=== PATIENT | female | born 1960 | race Caucasian/White ===

== ENCOUNTER 2016-04-24 14:16 | Emergency (ER) | payer MEDICAID, MEDICARE ==
[2016-04-24 14:47] VITALS: BP 145/68
--- NOTE | 2016-04-24 15:38 | UC ---
Dizzy HPI HPI Summary: vertigo started in the middle of the night last night. Got better, then returned today. Room spins when she suddenly turns head or sits up quickly. Similar to past episodes. She thinks she may have a sinus infection, pain under left eye, bloody/purulent nasal drainage in AM. No fever. Nausea but no vomiting. No recent injury - History Of Current Complaint Chief Complaint: UCDizziness Stated Complaint: DIZZINESS,ELEVATED B/P Time Seen by Provider: 04/24/16 14:34 Hx Obtained From: Patient, Family/French Translator - Onset/Duration: Sudden Onset - last night Timing: Constant Severity Initially: Moderate Severity Currently: Moderate Character: Room Spinning Aggravating Factor(s): Position Change, Supine To Erect, Change In Head Position Alleviating Factor(s): Rest Associated Signs And Symptoms: Positive: Nausea, Unsteady Gait. Negative: Vomiting, Diaphoresis, Tinnitus, Chest Pain, SOB, Palpitations, Visual Changes, Decreased Oral Intake, Change In Medication, Change In Diet Related History: Similar Episode/Dx as - vertigo - Risk Factors Cardiac Risk Factors: Hypertension, Smoking CVA Risk Factor: Hypertension, Smoking - Allergies/Home Medications Allergies/Adverse Reactions: Allergies Allergy/AdvReac Type Severity Reaction Status Date / Time pain meds Allergy Severe Fatigue, Uncoded 04/24/16 14:35 "I DON'T TOLERATE THEM" Home Medications: Home Medications Atorvastatin* [Lipitor*] 20 mg PO QPM 04/24/16 [History Confirmed 04/24/16] PMH/Surg Hx/FS Hx/Imm Hx Endocrine History Of: Reports: Thyroid Disease Denies: Diabetes Cardiovascular History Of: Reports: Hypertension Denies: Pacemaker/ICD Respiratory History Of: Reports: Asthma - PT STATES HAS COPD Cancer History Of: Denies: Breast Cancer - Surgical History Surgical History: Yes Surgery Procedure, Year, and Place: hysterectomy,cholecystectomy,neck fusion, cataracts - Family History Known Family History: Positive: Hypertension - Social History Occupation: Employed Full-time Lives: With Family Alcohol Use: Rare Substance Use Type: None Smoking Status (MU): Current Every Day Smoker Type: Cigarettes Amount Used/How Often: 1/2pk - 1 pk daily Length of Time of Smoking/Using Tobacco: ~ 20 plus years Household Exposure Type: Cigarettes Review of Systems Constitutional: Negative Skin: Negative Eyes: Negative ENT: Nasal Discharge - facial pain Respiratory: Cough Cardiovascular: Negative Gastrointestinal: Negative Genitourinary: Negative Motor: Negative Neurovascular: Negative Musculoskeletal: Negative Neurological: Negative Psychological: Negative All Other Systems Reviewed And Are Negative: Yes Physical Exam Triage Information Reviewed: Yes Appearance: Well-Appearing - holding head very still, sitting stiffly on bed, No Pain Distress, Well-Nourished Vital Signs: Initial Vital Signs Temp 98.2 F 04/24/16 14:42 Pulse 60 04/24/16 14:42 Resp 18 04/24/16 14:42 BP 145/68 04/24/16 14:42 Pulse Ox 98 04/24/16 14:42 Vital Signs Reviewed: Yes Eye Exam: Normal ENT: Positive: Pharynx normal, Nasal congestion, TMs normal. Negative: TM bulging, TM dull, TM red, Tonsillar swelling, Tonsillar exudate, Trismus, Muffled/hoarse voice Neck exam: Normal Neck: Positive: Supple Respiratory Exam: Normal Cardiovascular Exam: Normal Musculoskeletal Exam: Normal Neurological Exam: Normal Psychological Exam: Normal Skin Exam: Normal Diagnostics - Laboratory Diagnostic Studies Completed/Ordered: EKG unremarkable Dizzy Course/Dx - Differential Dx/Diagnosis Differential Diagnosis/HQI/PQRI: Benign Paroxysmal Positional Vertigo, Hypovolemia, Metabolic Abnormality, Transient Ischemic Attack Provider Diagnoses: benign paroxysmal positional vertigo Discharge - Discharge Plan Condition: Stable Disposition: HOME Prescriptions: Cephalexin CAP* [Keflex CAP*] 500 mg PO TID #30 cap Meclizine HCl [Meclizine 25] 25 mg PO Q6HR PRN #30 tab PRN Reason: dizziness/vertigo Patient Education Materials: Vertigo (ED) Referrals: Bernie Norwood MD [Primary Care Provider] - Additional Instructions: Try the Uyry Maneuver at home daily. It can cure or help the vertigo. If you have frequent vertigo episodes, ask your ENT for an evaluation.
== END 2016-04-24 15:43 | disposition home or self-care (01) ==
LOC: UCCORT 14:16
DX: H81.10 Benign paroxysmal vertigo, unspecified ear (principal); R11.0 Nausea; F17.210 Nicotine dependence, cigarettes, uncomplicated; I10 Essential (primary) hypertension
CPT/HCPCS: 93005; 99212; G0463

== ENCOUNTER 2016-08-11 15:26 | Emergency (ER) | payer MEDICAID, MEDICARE ==
[2016-08-11 15:43] VITALS: BP 149/71
--- NOTE | 2016-08-11 16:19 | UC ---
Elbow Pain - HPI Summary HPI Summary: 56 yo female with left elbow pain x 3 days no falls has been putting up dry wall and planting trees she is right handed - History of Current Complaint Chief Complaint: UCUpperExtremity Stated Complaint: LEFT ELBOW PAIN Time Seen by Provider: 08/11/16 15:41 Hx Obtained From: Patient Onset/Duration: Days Severity Initially: Mild Severity Currently: Severe Pain Intensity: 8 Pain Scale Used: 0-10 Numeric Character: Sharp, Aching, Throbbing Aggravating Factor(s): Movement, Pulling Alleviating Factor(s): Rest Associated Signs And Symptoms: Positive: Negative - Allergies/Home Medications Allergies/Adverse Reactions: Allergies Allergy/AdvReac Type Severity Reaction Status Date / Time pain meds Allergy Severe Fatigue, Uncoded 08/11/16 15:38 "I DON'T TOLERATE THEM" Home Medications: Home Medications Amlodipine Besylate [Norvasc 10 mg tab] 10 mg PO DAILY 08/11/16 [History Confirmed 08/11/16] PMH/Surg Hx/FS Hx/Imm Hx Previously Healthy: Yes - spinal stenosis and fibro Endocrine History: Dyslipidemia Cardiovascular History: Hypertension - Surgical History Surgical History: Yes Surgery Procedure, Year, and Place: hysterectomy,cholecystectomy,neck fusion, cataracts - Family History Known Family History: Positive: Cardiac Disease, Hypertension, Diabetes - Social History Alcohol Use: Rare Substance Use Type: None Smoking Status (MU): Current Every Day Smoker Type: Cigarettes Amount Used/How Often: 1/2pk - 1 pk daily Length of Time of Smoking/Using Tobacco: ~ 20 plus years Household Exposure Type: Cigarettes Review of Systems Constitutional: Negative Skin: Negative Eyes: Negative ENT: Negative Respiratory: Negative Cardiovascular: Negative Gastrointestinal: Negative Genitourinary: Negative Motor: Negative Neurovascular: Negative Musculoskeletal: Arthralgia Neurological: Negative Psychological: Negative All Other Systems Reviewed And Are Negative: Yes Physical Exam Triage Information Reviewed: Yes Appearance: Well-Appearing, No Pain Distress, Well-Nourished Vital Signs: Initial Vital Signs Temp 98.4 F 08/11/16 15:33 Pulse 61 08/11/16 15:33 Resp 18 08/11/16 15:33 BP 149/71 08/11/16 15:33 Pulse Ox 99 08/11/16 15:33 Vital Signs Reviewed: Yes Eyes: Positive: Conjunctiva Clear ENT: Positive: Hearing grossly normal. Negative: Nasal congestion, Nasal drainage, Trismus, Muffled/hoarse voice Neck: Positive: Supple, Nontender Respiratory: Positive: Chest non-tender, Lungs clear, Normal breath sounds Cardiovascular: Positive: RRR, No Murmur Musculoskeletal: Positive: ROM Limited @ - left elbow, Other: - see imabe Neurological: Positive: Alert, Muscle Tone Normal Psychological Exam: Normal Skin Exam: Normal Elbow Pain Course/Dx - Differential Dx/Diagnosis Provider Diagnoses: left lateral epicondylitis Discharge - Discharge Plan Condition: Stable Disposition: HOME Patient Education Materials: Tennis Elbow (ED) Referrals: Mitchell Rojas MD [Medical Doctor] - 1 Day Additional Instructions: tennis elbow brace may help (strap that attaches to forearm) heat massage tylenol see orthopedist I think you will need a cortisone shot Images Front/Back of Body, Lg ([place]): 1 - decreased ROM, tender lat epicondyle
--- NOTE | 2016-08-11 16:45 | RAD ---
INDICATION: Left elbow pain. TECHNIQUE: 4 views of the left elbow were obtained. FINDINGS: The bones are in normal alignment. No joint effusion or fracture is seen. There is mild osteoarthritic change. IMPRESSION: MILD OSTEOARTHRITIC CHANGE.
== END 2016-08-11 16:39 | disposition home or self-care (01) ==
LOC: UCCORT 15:26
DX: M77.12 Lateral epicondylitis, left elbow (principal); E78.5 Hyperlipidemia, unspecified; I10 Essential (primary) hypertension; Z88.6 Allergy status to analgesic agent; Z90.710 Acquired absence of both cervix and uterus; Z90.49 Acquired absence of other specified parts of digestive tract; F17.210 Nicotine dependence, cigarettes, uncomplicated
CPT/HCPCS: 99211; G0463

== ENCOUNTER 2016-11-18 17:35 | Emergency (ER) | payer MEDICARE ==
[2016-11-18 18:05] VITALS: BP 148/62
--- NOTE | 2016-11-18 19:04 | UC ---
Throat Pain/Nasal Cordell HPI - HPI Summary HPI Summary: SINUS CONGESTION ONE WEEK; SMOKER. LAST TWO DAYS WORSENING FACIAL PRESSURE, COUGH, SORE THROAT. - History of Current Complaint Chief Complaint: UCGeneralIllness Stated Complaint: SINUS/SORE THROAT Time Seen by Provider: 11/18/16 18:42 Hx Obtained From: Patient Onset/Duration: Gradual Onset, Lasting Days Severity: Mild Cough: Nonproductive Associated Signs & Symptoms: Positive: Hoarseness, Sinus Discomfort, Nasal Discharge - Epiglottits Risk Factors Epiglottis Risk Factors: Negative - Allergies/Home Medications Allergies/Adverse Reactions: Allergies Allergy/AdvReac Type Severity Reaction Status Date / Time pain meds Allergy Severe Fatigue, Uncoded 11/18/16 18:05 "I DON'T TOLERATE THEM" PMH/Surg Hx/FS Hx/Imm Hx Previously Healthy: Yes - Surgical History Surgical History: Yes Surgery Procedure, Year, and Place: hysterectomy,cholecystectomy,neck fusion, cataracts - Family History Known Family History: Positive: Cardiac Disease, Hypertension, Diabetes - Social History Occupation: Employed Full-time Lives: With Family Alcohol Use: Rare Substance Use Type: None Smoking Status (MU): Current Every Day Smoker Type: Cigarettes Amount Used/How Often: 1/2pk - 1 pk daily Length of Time of Smoking/Using Tobacco: ~ 20 plus years Household Exposure Type: Cigarettes Cessation Counseling: Patient Advised to Stop Review of Systems Constitutional: Fatigue Skin: Negative Eyes: Negative ENT: Sore Throat, Ear Ache, Nasal Discharge, Sinus Congestion, Sinus Pain/ Tenderness Respiratory: Cough Cardiovascular: Negative Gastrointestinal: Negative Genitourinary: Negative Motor: Negative Neurovascular: Negative Musculoskeletal: Negative Neurological: Negative Psychological: Negative Is Patient Immunocompromised?: No All Other Systems Reviewed And Are Negative: Yes Physical Exam Triage Information Reviewed: Yes Appearance: Well-Appearing, No Pain Distress, Well-Nourished Vital Signs: Initial Vital Signs Temp 97.6 F 11/18/16 17:59 Pulse 60 11/18/16 17:59 Resp 16 11/18/16 17:59 BP 148/62 11/18/16 17:59 Pulse Ox 99 11/18/16 17:59 Vital Signs Reviewed: Yes Eye Exam: Normal ENT: Positive: Pharynx normal, Nasal congestion, TM bulging, TM dull Dental Exam: Normal Neck exam: Normal Neck: Positive: Supple, Nontender, No Lymphadenopathy Respiratory Exam: Normal Respiratory: Positive: Chest non-tender, Lungs clear, Normal breath sounds, No respiratory distress Cardiovascular Exam: Normal Cardiovascular: Positive: RRR, No Murmur, Pulses Normal Abdominal Exam: Normal Abdomen Description: Positive: Nontender, No Organomegaly Musculoskeletal Exam: Normal Neurological Exam: Normal Psychological Exam: Normal Skin Exam: Normal Throat Pain/Nasal Course/Dx - Differential Dx/Diagnosis Differential Diagnosis/HQI/PQRI: Pharyngitis, Sinusitis, Tonsillitis, URI Provider Diagnoses: SINUSITIS Discharge - Discharge Plan Condition: Stable Disposition: HOME Prescriptions: Amoxicillin/Clavulanate TAB* [Augmentin TAB 875*] 875 mg PO BID #20 tab Patient Education Materials: Sinusitis (ED) Referrals: Bernie Norwood MD [Primary Care Provider] -
== END 2016-11-18 19:16 | disposition home or self-care (01) ==
LOC: UCCORT 17:35
DX: J32.9 Chronic sinusitis, unspecified (principal); F17.210 Nicotine dependence, cigarettes, uncomplicated
CPT/HCPCS: 99212; G0463

== ENCOUNTER 2017-02-18 14:31 | Emergency (ER) | payer MEDICARE ==
[2017-02-18 15:30] VITALS: BP 134/57
[2017-02-18] MEDS ORDERED: Ipratropium 0.5MG/2.5ML NEB* 0.5 MG/2.5 ML NEB.SOLN INH ONE (15:54)
[2017-02-18] MEDS ORDERED: Albuterol 2.5 MG/3 ML NEB.SOL* (0.083%) INH ONE (15:54)
--- NOTE | 2017-02-18 15:54 | UC ---
Respiratory Complaint HPI - HPI Summary HPI Summary: Pt c/o cough, sob, wheezing generalized malaise X 3 days. - History of Current Complaint Chief Complaint: UCRespiratory Stated Complaint: COUGH CONGESTION HEADACHE Time Seen by Provider: 02/18/17 15:31 Hx Obtained From: Patient ?: No Onset/Duration: Gradual Onset, Lasting Days, Still Present, Worse Since - onset Timing: Constant Severity Initially: Mild Severity Currently: Moderate Aggravating Factors: Exertion, Deep Breaths, Recumbent Position Alleviating Factors: Nothing Associated Signs And Symptoms: Positive: Nasal Congestion - Risk Factors Pulmonary Embolism Risk Factors: Smoking Cardiac Risk Factors: Smoking Tuberculosis Risk Factors: Smoking - Allergies/Home Medications Allergies/Adverse Reactions: Allergies Allergy/AdvReac Type Severity Reaction Status Date / Time pain meds Allergy Severe Fatigue, Uncoded 11/18/16 18:05 "I DON'T TOLERATE THEM" PMH/Surg Hx/FS Hx/Imm Hx Previously Healthy: No Cardiovascular History: Hypertension Respiratory History: COPD - smoker - Surgical History Surgical History: Yes Surgery Procedure, Year, and Place: hysterectomy,cholecystectomy,neck fusion, cataracts - Family History Known Family History: Positive: Cardiac Disease, Hypertension, Diabetes - Social History Lives: With Family Alcohol Use: Rare Substance Use Type: None Smoking Status (MU): Current Every Day Smoker Type: Cigarettes Amount Used/How Often: 1/2pk - 1 pk daily Length of Time of Smoking/Using Tobacco: ~ 20 plus years Have You Smoked in the Last Year: Yes Household Exposure Type: Cigarettes - Immunization History Vaccination Up to Date: No Review of Systems Constitutional: Chills, Fatigue Skin: Negative Eyes: Negative ENT: Other - nasal congestion Respiratory: Shortness Of Breath, Cough Cardiovascular: Negative Gastrointestinal: Negative Genitourinary: Negative Motor: Negative Neurovascular: Negative Musculoskeletal: Negative Neurological: Negative Psychological: Negative Is Patient Immunocompromised?: No All Other Systems Reviewed And Are Negative: Yes Physical Exam Triage Information Reviewed: Yes Appearance: Ill-Appearing Vital Signs: Initial Vital Signs Temp 99.0 F 02/18/17 15:24 Pulse 66 02/18/17 15:24 Resp 18 02/18/17 15:24 BP 134/57 02/18/17 15:24 Pulse Ox 97 02/18/17 15:24 Vital Signs Reviewed: Yes Eye Exam: Normal ENT Exam: Other ENT: Positive: Nasal congestion Dental Exam: Normal Neck exam: Normal Respiratory Exam: Other Respiratory: Positive: Decreased breath sounds, Wheezing Cardiovascular Exam: Normal Musculoskeletal Exam: Normal Neurological Exam: Normal Psychological Exam: Normal Skin Exam: Normal UC Diagnostic Evaluation - Laboratory O2 Sat by Pulse Oximetry: 97 Respiratory Course/Dx - Differential Dx/Diagnosis Differential Diagnosis/HQI/PQRI: Bronchitis, Pulmonary Embolism, Other - pneumonia Provider Diagnoses: bronchitis Discharge - Discharge Plan Condition: Stable Disposition: HOME Prescriptions: Albuterol HFA INHALER* [Ventolin HFA Inhaler*] 1 - 2 puff INH Q4H PRN #1 mdi PRN Reason: Sob/Wheezing Azithromycin TAB* [Zithromax TAB (Z-THAI) 250 mg #6 tabs] 2 tab PO .TODAY, THEN 1 DAILY #1 thai Benzonatate CAP* [Tessalon 100 MG CAP*] 100 mg PO Q8H PRN #30 cap PRN Reason: Cough Patient Education Materials: Acute Bronchitis (ED), Wheezing (ED) Referrals: Bernie Norwood MD [Primary Care Provider] - If Needed
--- NOTE | 2017-02-18 16:19 | RAD ---
HISTORY: Shortness of breath, cough COMPARISONS: September 16, 2015 VIEWS: 4: Frontal dual-energy and lateral views of the chest. FINDINGS: CARDIOMEDIASTINAL SILHOUETTE: The cardiomediastinal silhouette is normal. REINA: The reina are normal. PLEURA: The costophrenic angles are sharp. No pleural abnormalities are noted. LUNG PARENCHYMA: The lungs are clear. ABDOMEN: The upper abdomen is clear. There is no subphrenic gas. BONES AND SOFT TISSUES: The patient is status post anterior cervical fusion. Degenerative changes are noted. OTHER: None. IMPRESSION: NO ACTIVE CARDIOPULMONARY DISEASE.
== END 2017-02-18 16:38 | disposition home or self-care (01) ==
LOC: UCCORT 14:31
DX: J40 Bronchitis, not specified as acute or chronic (principal); F17.210 Nicotine dependence, cigarettes, uncomplicated
CPT/HCPCS: 71020; 99212; G0463; J7644

== ENCOUNTER 2017-02-25 07:06 | Emergency (ER) | payer MEDICARE ==
--- NOTE | 2017-02-25 07:18 | UC ---
Complaint Male HPI - HPI Summary HPI Summary: 57 year old with urinary complaint. Has taken Azo already. Took z pack last week for URI and improved. burning started this AM at 3 am and has had numerous UTI in the past and feels just like one. no discharge. no yeast infection. no fever or chills. no n/v/d - History of Current Complaint Stated Complaint: URINARY COMPLAINT Time Seen by Provider: 02/25/17 07:15 Hx Obtained From: Patient Onset/Duration: Sudden Onset Timing: Constant Severity Initially: Moderate Character: Sharp Aggravating Factor(s): Voiding - Allergies/Home Medications Allergies/Adverse Reactions: Allergies Allergy/AdvReac Type Severity Reaction Status Date / Time pain meds Allergy Severe Fatigue, Uncoded 11/18/16 18:05 "I DON'T TOLERATE THEM" PMH/Surg Hx/FS Hx/Imm Hx Previously Healthy: Yes Cardiovascular History: Hypertension GI/ History: Gastroesophageal Reflux - Surgical History Surgical History: Yes Surgery Procedure, Year, and Place: hysterectomy,cholecystectomy,neck fusion, cataracts - Family History Known Family History: Positive: Cardiac Disease, Hypertension, Diabetes - Social History Occupation: Employed Full-time Alcohol Use: Rare Substance Use Type: None Smoking Status (MU): Current Every Day Smoker Type: Cigarettes Amount Used/How Often: 1/2pk - 1 pk daily Length of Time of Smoking/Using Tobacco: ~ 20 plus years Have You Smoked in the Last Year: Yes Household Exposure Type: Cigarettes Cessation Counseling: Patient Advised to Stop - Immunization History Vaccination Up to Date: No Review of Systems Genitourinary: Dysuria, Frequency, Urgency All Other Systems Reviewed And Are Negative: Yes Physical Exam Triage Information Reviewed: Yes Appearance: Well-Appearing, No Pain Distress, Well-Nourished Vital Signs Reviewed: Yes Eye Exam: Normal ENT Exam: Normal Respiratory Exam: Normal Cardiovascular Exam: Normal Abdominal Exam: Normal Abdomen Description: Positive: Nontender. Negative: CVA Tenderness (R), CVA Tenderness (L) Neurological Exam: Normal Psychological Exam: Normal Skin Exam: Normal Complaint Male Course/Dx - Course Course Of Treatment: If culture comes back negative can stop meds but she took Azo already here - Differential Dx/Diagnosis Differential Diagnosis/HQI/PQRI: Pyelonephritis, Urinary Tract Infection Provider Diagnoses: UTI Discharge - Discharge Plan Condition: Good Disposition: HOME Prescriptions: Sulfamethox/Trimethoprim DS* [Bactrim DS 800/160 TAB*] 1 tab PO BID #6 tab Patient Education Materials: Urinary Tract Infection in Women (ED) Referrals: Bernie Norwood MD [Primary Care Provider] - 4 Days (if needed ) Additional Instructions: As we discussed if your urine culture is negative we will advise you stop the antibiotics.
[2017-02-25 07:20] VITALS: BP 161/67
== END 2017-02-25 07:48 | disposition home or self-care (01) ==
LOC: UCCORT 07:06
DX: N39.0 Urinary tract infection, site not specified (principal); Z72.0 Tobacco use
CPT/HCPCS: 87077; 87086; 87186; 99212; G0463

== ENCOUNTER 2017-06-10 17:13 | Emergency (ER) | payer MEDICARE ==
[2017-06-10 18:07] VITALS: BP 129/51
--- NOTE | 2017-06-10 18:12 | UC ---
Throat Pain/Nasal Cordell HPI - HPI Summary HPI Summary: Pt presents with sinus pain/pressure/congestion for the last 2 weeks. Has been taking OTC cold and flu medication and sudafed with no relief. Recently developed a headache over the last 2-3 days. Denies fever, chills, cough, SOB, chest pain, abdominal pain. She is still smoking daily - History of Current Complaint Chief Complaint: UCGeneralIllness Stated Complaint: SINUS COMP Time Seen by Provider: 06/10/17 17:58 Hx Obtained From: Patient Onset/Duration: Gradual Onset Severity: Moderate Pain Intensity: 6 Pain Scale Used: 0-10 Numeric - Allergies/Home Medications Allergies/Adverse Reactions: Allergies Allergy/AdvReac Type Severity Reaction Status Date / Time NARCOTIC PAIN MEDS Allergy Fatigue, Uncoded 06/10/17 17:54 PT STATES SHE DOES NOT TOLERATE. Home Medications: Home Medications Aspirin/Acetaminophen/Caffeine [Excedrin Extra Strength Caplet] 2 each PO DAILY PRN 06/10/17 [History Confirmed 06/10/17] Levothyroxine TAB* [Synthroid TAB*] 25 mcg PO DAILY 06/10/17 [History Confirmed 06/10/17] Lovastatin [Altoprev] 40 mg PO BEDTIME 06/10/17 [History Confirmed 06/10/17] Meclizine TAB* [Antivert 12.5 TAB*] 12.5 mg PO TID PRN 06/10/17 [History Confirmed 06/10/17] Omeprazole 20 mg PO DAILY 06/10/17 [History Confirmed 06/10/17] PMH/Surg Hx/FS Hx/Imm Hx Endocrine History: Hypothyroidism, Dyslipidemia Cardiovascular History: Hypertension Respiratory History: COPD - Surgical History Surgical History: Yes Surgery Procedure, Year, and Place: hysterectomy,cholecystectomy,neck fusion, cataracts - Family History Known Family History: Positive: Cardiac Disease, Hypertension, Diabetes - Social History Occupation: Retired Lives: With Family Alcohol Use: Rare Substance Use Type: None Smoking Status (MU): Current Every Day Smoker Type: Cigarettes Amount Used/How Often: 1/2pk - 1 pk daily Length of Time of Smoking/Using Tobacco: ~ 20 plus years Have You Smoked in the Last Year: Yes Household Exposure Type: Cigarettes - Immunization History Most Recent Influenza Vaccination: NEVER Vaccination Up to Date: No Review of Systems Constitutional: Negative Skin: Negative Eyes: Negative ENT: Nasal Discharge, Sinus Congestion, Sinus Pain/Tenderness Respiratory: Negative Cardiovascular: Negative Gastrointestinal: Negative Neurovascular: Negative Musculoskeletal: Negative Neurological: Headache Psychological: Negative All Other Systems Reviewed And Are Negative: Yes Physical Exam - Summary Physical Exam Summary: GENERAL: NAD. WDWN HEENT: NC/AT. Conjunctiva clear without inflammation or discharge. TMs intact , no bulging, erythema, or edema. Nasal mucosa mildly swollen and erythematous with yellow/clear discharge. TTP maxillary and frontal sinus. Posterior oropharynx without exudates, erythema, or tonsillar enlargement. Uvula midline. NECK: Supple without lymphadenopathy CHEST: CTAB. No r/r/w. No accessory muscle use. Breathing comfortably and in no distress. CV: RRR. Without m/r/g. Pulses intact. SKIN: No rash or erythema noted. NEURO: Alert. CN II-XII grossly intact. PSYCH: Age appropriate behavior. Triage Information Reviewed: Yes Vital Signs: Initial Vital Signs Temp 98.7 F 06/10/17 17:59 Pulse 60 06/10/17 17:59 Resp 18 06/10/17 17:59 BP 129/51 06/10/17 17:59 Pulse Ox 98 06/10/17 17:59 Throat Pain/Nasal Course/Dx - Course Course Of Treatment: Sinusitis - Augmentin - Differential Dx/Diagnosis Provider Diagnoses: Sinusitis Discharge - Sign-Out/Discharge Documenting (check all that apply): Discharge - Discharge Plan Condition: Stable Disposition: HOME Prescriptions: Amoxicillin/Clavulanate TAB* [Augmentin TAB 875*] 875 mg PO BID #20 tab Patient Education Materials: Sinusitis (ED) Referrals: Bernie Nowrood MD [Primary Care Provider] - Additional Instructions: If you develop a fever, shortness of breath, chest pain, new or worsening symptoms - please call your PCP or go to the ED. - Billing Disposition and Condition Condition: STABLE Disposition: HOME
== END 2017-06-10 18:30 | disposition home or self-care (01) ==
LOC: UCCORT 17:13
DX: J32.9 Chronic sinusitis, unspecified (principal); F17.210 Nicotine dependence, cigarettes, uncomplicated; E03.9 Hypothyroidism, unspecified; E78.5 Hyperlipidemia, unspecified; I10 Essential (primary) hypertension; J44.9 Chronic obstructive pulmonary disease, unspecified
CPT/HCPCS: 99212; G0463

== ENCOUNTER 2017-08-28 15:19 | Emergency (ER) | payer MEDICARE ==
[2017-08-28 15:46] VITALS: BP 157/61
--- NOTE | 2017-08-28 16:04 | UC ---
Complaint Female HPI - HPI Summary HPI Summary: Onset of dysuria, urinary frequency and urgency today. No fever, back pain or nausea. - History Of Current Complaint Stated Complaint: URINARY COMPLAING Time Seen by Provider: 08/28/17 15:37 Hx Obtained From: Patient Onset/Duration: Gradual Onset, Lasting Hours, Still Present Timing: Constant Severity Initially: Mild Severity Currently: Moderate Pain Intensity: 0 Pain Scale Used: 0-10 Numeric Character: Burning Aggravating Factor(s): Urination Alleviating Factor(s): Nothing Associated Signs And Symptoms: Negative: Fever, Back Pain, Vaginal Bleeding/ Discharge, Nausea - Allergies/Home Medications Allergies/Adverse Reactions: Allergies Allergy/AdvReac Type Severity Reaction Status Date / Time NARCOTIC PAIN MEDS Allergy Fatigue, Uncoded 08/28/17 15:39 PT STATES SHE DOES NOT TOLERATE. PMH/Surg Hx/FS Hx/Imm Hx - Additional Past Medical History Additional PMH: FIBROMYALGIA, SPINAL STENOSIS Endocrine History: Dyslipidemia Cardiovascular History: Hypertension Respiratory History: COPD - Surgical History Surgical History: Yes Surgery Procedure, Year, and Place: hysterectomy,cholecystectomy,neck fusion, cataracts, eye surgery 07/2017 - Family History Known Family History: Positive: Cardiac Disease, Hypertension, Diabetes - Social History Alcohol Use: Rare Substance Use Type: None Smoking Status (MU): Current Every Day Smoker Type: Cigarettes Amount Used/How Often: 1/2pk - 1 pk daily Length of Time of Smoking/Using Tobacco: ~ 20 plus years Have You Smoked in the Last Year: Yes Household Exposure Type: Cigarettes - Immunization History Most Recent Influenza Vaccination: NEVER Vaccination Up to Date: No Review of Systems Constitutional: Negative Respiratory: Negative Cardiovascular: Negative Gastrointestinal: Abdominal Pain Genitourinary: Dysuria, Frequency, Urgency All Other Systems Reviewed And Are Negative: Yes Physical Exam Triage Information Reviewed: Yes Appearance: Well-Appearing, No Pain Distress, Well-Nourished Vital Signs: Initial Vital Signs Temp 97.9 F 08/28/17 15:37 Pulse 97 08/28/17 15:37 Resp 19 08/28/17 15:37 BP 157/61 08/28/17 15:37 Pulse Ox 100 08/28/17 15:37 Vital Signs Reviewed: Yes Eyes: Positive: Conjunctiva Clear ENT: Positive: Hearing grossly normal Neck: Positive: Supple Respiratory: Positive: No respiratory distress, No accessory muscle use Cardiovascular: Positive: Pulses Normal Abdomen Description: Positive: Soft, Other: - SUPRAPUBIC TTP. Negative: CVA Tenderness (R), CVA Tenderness (L), Distended, Guarding Musculoskeletal: Positive: No Edema Neurological: Positive: Alert Psychological: Positive: Age Appropriate Behavior Skin: Negative: rashes Diagnostics - Laboratory Diagnostic Studies Completed/Ordered: URINE DIP SP. GR. 1.015, 2+LEUKS, 2+ BLOOD , 2+ PROTEIN, TRACE KETONES Complaint Female Dx - Differential Dx/Diagnosis Provider Diagnoses: UTI Discharge - Sign-Out/Discharge Documenting (check all that apply): Discharge/Admit/Transfer - Discharge Plan Condition: Stable Disposition: HOME Prescriptions: Phenazopyridine TAB* [Pyridium TAB*] 200 mg PO TID #6 tab Sulfamethox/Trimethoprim DS* [Bactrim DS 800/160 TAB*] 1 tab PO BID #10 tab Patient Education Materials: Urinary Tract Infection in Women (ED) Referrals: Bernie Norwood MD [Primary Care Provider] - If Needed - Billing Disposition and Condition Condition: STABLE Disposition: Home
--- NOTE | 2017-08-30 15:23 | UC ---
- Progress Note Progress Note: + E. Coli Pt on bactrim await sensitivity no change [facility] 08/30/3017 Discharge - Sign-Out/Discharge Documenting (check all that apply): Post-Discharge Follow Up - Discharge Plan Condition: Stable Disposition: HOME Prescriptions: Phenazopyridine TAB* [Pyridium TAB*] 200 mg PO TID #6 tab Sulfamethox/Trimethoprim DS* [Bactrim DS 800/160 TAB*] 1 tab PO BID #10 tab Patient Education Materials: Urinary Tract Infection in Women (ED) Referrals: Bernie Norwood MD [Primary Care Provider] - If Needed - Billing Disposition and Condition Condition: STABLE Disposition: Home
== END 2017-08-28 16:12 | disposition home or self-care (01) ==
LOC: UCCORT 15:19
DX: N39.0 Urinary tract infection, site not specified (principal); B96.20 Unspecified Escherichia coli [E. coli] as the cause of diseases classified elsewhere; F17.210 Nicotine dependence, cigarettes, uncomplicated; Z88.5 Allergy status to narcotic agent; I10 Essential (primary) hypertension
CPT/HCPCS: 81003; 87077; 87086; 87186; 99212; G0463

== ENCOUNTER 2017-11-21 17:06 | Emergency (ER) | payer MEDICARE ==
[2017-11-21 17:34] VITALS: BP 153/61
--- NOTE | 2017-11-21 18:02 | UC ---
Lower Extremity/Ankle HPI - HPI Summary HPI Summary: lateral right ankle pain bruising and swelling began in the middle of the night last night when she stood up out of bed---painful to WB - History of Current Complaint Chief Complaint: UCLowerExtremity Stated Complaint: R ANKLE PAIN Time Seen by Provider: 11/21/17 17:51 Hx Obtained From: Patient ?: No Onset/Duration: Sudden Onset, Lasting Hours - 12 Pain Intensity: 5 Pain Scale Used: 0-10 Numeric Aggravating Factor(s): Standing, Ambulation Alleviating Factor(s): Rest, Elevation Able to Bear Weight: No - Allergies/Home Medications Allergies/Adverse Reactions: Allergies Allergy/AdvReac Type Severity Reaction Status Date / Time ibuprofen AdvReac See Comment Verified 11/21/17 17:24 NARCOTIC PAIN MEDS Allergy Fatigue, Uncoded 11/21/17 17:23 PT STATES SHE DOES NOT TOLERATE. Home Medications: Home Medications Levocetirizine Dihydrochloride [Allergy Relief] 5 mg PO BEDTIME 11/21/17 [ History Confirmed 11/21/17] Oxymetazoline 0.05% NASAL SPR* [Afrin 0.05% NASAL SPRAY*] 2 spray NASAL BEDTIME 11/21/17 [History Confirmed 11/21/17] PMH/Surg Hx/FS Hx/Imm Hx Previously Healthy: No Endocrine History: Hypothyroidism, Dyslipidemia Cardiovascular History: Hypertension - Surgical History Surgical History: Yes Surgery Procedure, Year, and Place: hysterectomy,cholecystectomy,neck fusion, cataracts, eye surgery 07/2017 - Family History Known Family History: Positive: Cardiac Disease, Hypertension, Diabetes - Social History Occupation: Disabled Lives: With Family Alcohol Use: Rare Substance Use Type: None Smoking Status (MU): Current Every Day Smoker Type: Cigarettes Amount Used/How Often: 1/2pk - 1 pk daily Length of Time of Smoking/Using Tobacco: ~ 20 plus years Have You Smoked in the Last Year: Yes Household Exposure Type: Cigarettes - Immunization History Most Recent Influenza Vaccination: NEVER Vaccination Up to Date: No Review of Systems Constitutional: Negative Skin: Bruising - right lateral ankle Eyes: Negative ENT: Negative Respiratory: Negative Cardiovascular: Negative Gastrointestinal: Negative Genitourinary: Negative Motor: Negative Neurovascular: Negative Musculoskeletal: Arthralgia - lateral right ankle pain Neurological: Negative Psychological: Negative Is Patient Immunocompromised?: No All Other Systems Reviewed And Are Negative: Yes Physical Exam Triage Information Reviewed: Yes Appearance: Well-Appearing, Pain Distress - mild, Obese Vital Signs: Initial Vital Signs Temp 97.9 F 11/21/17 17:30 Pulse 67 11/21/17 17:30 Resp 21 11/21/17 17:30 BP 153/61 11/21/17 17:30 Pulse Ox 98 11/21/17 17:30 Vital Signs Reviewed: Yes Eye Exam: Normal Eyes: Positive: Conjunctiva Clear ENT Exam: Normal ENT: Positive: Normal ENT inspection, Hearing grossly normal. Negative: Trismus , Muffled voice, Hoarse voice Dental Exam: Normal Neck exam: Normal Neck: Positive: Supple, Nontender Respiratory Exam: Normal Respiratory: Positive: Chest non-tender, No respiratory distress, No accessory muscle use Cardiovascular Exam: Normal Cardiovascular: Positive: No Murmur, Pulses Normal, Brisk Capillary Refill Musculoskeletal Exam: Other Musculoskeletal: Positive: Strength Intact, ROM Intact, Edema @ - lateral right ankle Neurological Exam: Normal Neurological: Positive: Alert, Muscle Tone Normal Psychological Exam: Normal Skin Exam: Other Skin: Positive: Other - bruising noted lateral right ankle Diagnostics - Radiology No standard instances Xray Interpretation: No Acute Changes Radiology Interpretation Completed By: ED Physician Lower Extremity Course/Dx - Course Course Of Treatment: rice, tylenol, cam boot crutches follow with Dr. Rojas this week,, follow blood pressure with PCP in next 2 weeks - Differential Dx/Diagnosis Provider Diagnoses: elevated blood pressure in poor control, right ankle strain Discharge - Sign-Out/Discharge Documenting (check all that apply): Patient Departure All imaging exams completed and their final reports reviewed: No - Discharge Plan Condition: Stable Disposition: HOME Patient Education Materials: Acetaminophen (By mouth), Crutch Instructions (ED) , Hypertension (ED), R.I.C.E. Treatment (ED), Ankle Strain (ED) Referrals: Mitchell Rojas MD [Medical Doctor] - 4 Days Bernie Norwood MD [Primary Care Provider] - 2 Weeks - Billing Disposition and Condition Condition: STABLE Disposition: Home
--- NOTE | 2017-11-22 07:06 | RAD ---
INDICATION: Right lateral ankle pain and swelling. TECHNIQUE: 3 views of the right ankle were obtained. FINDINGS: Soft tissue swelling is noted along the anterolateral aspect of the ankle. No fracture is seen. Joint spaces appear maintained. IMPRESSION: SOFT TISSUE SWELLING, NO FRACTURE IS SEEN. R0
--- NOTE | 2017-11-22 09:37 | ED ---
Progress - Progress Note Progress Note: Final xray report reviewed. STS, no fracture. Course/Dx - Course Course Of Treatment: rice, tylenol, cam boot crutches follow with Dr. Rojas this week,, follow blood pressure with PCP in next 2 weeks Discharge - Sign-Out/Discharge Documenting (check all that apply): Patient Departure All imaging exams completed and their final reports reviewed: Yes - Discharge Plan Condition: Stable Disposition: HOME Patient Education Materials: Acetaminophen (By mouth), Crutch Instructions (ED) , Hypertension (ED), R.I.C.E. Treatment (ED), Ankle Strain (ED) Referrals: Mitchell Rojas MD [Medical Doctor] - 4 Days Bernie Norwood MD [Primary Care Provider] - 2 Weeks - Billing Disposition and Condition Condition: STABLE Disposition: Home
== END 2017-11-21 18:58 | disposition home or self-care (01) ==
LOC: UCCORT 17:06
CPT/HCPCS: 99213; G0463

== ENCOUNTER 2018-12-13 07:05 | Emergency (ER) | payer MEDICARE ==
[2018-12-13 07:44] VITALS: BP 142/74
--- NOTE | 2018-12-13 08:15 | UC ---
Complaint Female HPI - HPI Summary HPI Summary: dysuria x 1 day urinary frequency , urgency denies any fever, no chills, no flank pain - History Of Current Complaint Chief Complaint: UCGU Stated Complaint: URINARY COMPLAINT Time Seen by Provider: 12/13/18 07:46 Hx Obtained From: Patient Onset/Duration: Gradual Onset, Lasting Days - 1, Still Present Timing: Constant Severity Initially: Moderate Severity Currently: Moderate Pain Intensity: 2 Character: Burning Aggravating Factor(s): Urination Alleviating Factor(s): Nothing Associated Signs And Symptoms: Negative: Fever, Back Pain, Vaginal Bleeding/ Discharge, Vaginal Discharge, Nausea, Vomiting(# Of Episodes =), Genital Swelling, Genital Blisters Related Hx: Similar Episode/Dx as: - UTI - Allergies/Home Medications Allergies/Adverse Reactions: Allergies Allergy/AdvReac Type Severity Reaction Status Date / Time ibuprofen AdvReac See Comment Verified 12/13/18 07:35 NARCOTIC PAIN MEDS Allergy Fatigue, Uncoded 12/13/18 07:35 PT STATES SHE DOES NOT TOLERATE. Home Medications: Home Medications Cranberry Conc/C/Bacill Coag [Azo Cranberry 250-30 mg] 1 tab PO ONCE PRN [History Confirmed 12/13/18] PMH/Surg Hx/FS Hx/Imm Hx Cardiovascular History: Hypertension Respiratory History: COPD - Surgical History Surgical History: Yes Surgery Procedure, Year, and Place: hysterectomy,cholecystectomy,neck fusion, cataracts, eye surgery 07/2017. right knee - Family History Known Family History: Positive: Cardiac Disease, Hypertension, Diabetes - Social History Alcohol Use: Rare Substance Use Type: None Smoking Status (MU): Heavy Every Day Tobacco Smoker Type: Cigarettes Amount Used/How Often: 1/2pk daily Length of Time of Smoking/Using Tobacco: ~ 20 plus years Have You Smoked in the Last Year: Yes Household Exposure Type: Cigarettes - Immunization History Most Recent Influenza Vaccination: NEVER Vaccination Up to Date: No Review of Systems All Other Systems Reviewed And Are Negative: Yes Constitutional: Positive: Negative Eyes: Positive: Negative ENT: Positive: Negative Respiratory: Positive: Negative Cardiovascular: Positive: Negative Gastrointestinal: Positive: Negative Genitourinary: Positive: Dysuria, Frequency, Urgency Is Patient Immunocompromised?: No Physical Exam Triage Information Reviewed: Yes Appearance: Well-Appearing, No Pain Distress, Well-Nourished Vital Signs: Initial Vital Signs Temp 97.5 F 12/13/18 07:39 Pulse 57 12/13/18 07:39 Resp 16 12/13/18 07:39 BP 142/74 12/13/18 07:39 Pulse Ox 97 12/13/18 07:39 Vital Signs Reviewed: Yes Eye Exam: Normal Eyes: Positive: Conjunctiva Clear ENT: Positive: Normal ENT inspection, Hearing grossly normal, Pharynx normal Neck: Positive: Supple, Nontender, No Lymphadenopathy Respiratory: Positive: Chest non-tender, Lungs clear, Normal breath sounds Cardiovascular: Positive: RRR, No Murmur, Pulses Normal Abdominal Exam: Normal Abdomen Description: Positive: Nontender, Soft. Negative: CVA Tenderness (R), CVA Tenderness (L), Distended, Guarding Bowel Sounds: Positive: Present Complaint Female Dx - Differential Dx/Diagnosis Provider Diagnosis: UTI (urinary tract infection) Discharge ED - Sign-Out/Discharge Documenting (check all that apply): Patient Departure All imaging exams completed and their final reports reviewed: No Studies - Discharge Plan Condition: Stable Disposition: HOME Prescriptions: Sulfamethox/Trimethoprim DS* [Bactrim DS 800/160 TAB*] 1 tab PO BID #14 tab Patient Education Materials: Urinary Tract Infection in Women (ED) Referrals: Bernie Norwood MD [Primary Care Provider] - If Needed - Billing Disposition and Condition Condition: STABLE Disposition: Home
--- NOTE | 2018-12-15 07:22 | UC ---
- Progress Note Progress Note: please notify patient... no UTI stop antibiotic needs to see PCP for evaluation of her abnormal UA Course/Dx - Diagnoses Provider Diagnoses: UTI (urinary tract infection) Discharge ED - Sign-Out/Discharge Documenting (check all that apply): Post-Discharge Follow Up All imaging exams completed and their final reports reviewed: No Studies - Discharge Plan Condition: Stable Disposition: HOME Prescriptions: Sulfamethox/Trimethoprim DS* [Bactrim DS 800/160 TAB*] 1 tab PO BID #14 tab Patient Education Materials: Urinary Tract Infection in Women (ED) Referrals: Bernei Norwood MD [Primary Care Provider] - If Needed - Billing Disposition and Condition Condition: STABLE Disposition: Home
== END 2018-12-13 08:17 | disposition home or self-care (01) ==
LOC: UCCORT 07:05
DX: N39.0 Urinary tract infection, site not specified (principal); I10 Essential (primary) hypertension; J44.9 Chronic obstructive pulmonary disease, unspecified; F17.210 Nicotine dependence, cigarettes, uncomplicated; Z88.5 Allergy status to narcotic agent
CPT/HCPCS: 81003; 87086; 99212; G0463